=== PATIENT | male | born 1995 | race Caucasian/White ===

== ENCOUNTER 2018-08-13 01:18 | Emergency (ER) | payer OTHER ==
[~2018-08-13] VITALS: Ht 190.5 cm; Wt 79.4 kg
[2018-08-13 02:42] VITALS: BP 138/82
== END 2018-08-13 02:44 | disposition home or self-care (01) ==
LOC: ER 01:18
DX: S01.112A Laceration without foreign body of left eyelid and periocular area, initial encounter (principal); W22.8XXA Striking against or struck by other objects, initial encounter; Y92.89 Other specified places as the place of occurrence of the external cause; Y93.89 Activity, other specified; Y99.8 Other external cause status